=== PATIENT | male | born 1980 | race Caucasian/White ===

== ENCOUNTER 2020-05-20 14:10 | Emergency (ER) | payer OTHER ==
[~2020-05-20] VITALS: Ht 177.8 cm; Wt 100.7 kg
--- NOTE | 2020-05-20 14:49 | REP ---
INDICATION: pain after fall COMPARISON: None. TECHNIQUE: AP, lateral, bilateral oblique and sunrise views. FINDINGS: The osseous structures and joint spaces are intact and normal. There is no evidence for acute fracture or dislocation. No joint effusion is appreciated. Surrounding soft tissues are unremarkable. No subcutaneous emphysema or radiodense foreign body. IMPRESSION: Normal examination. No acute fracture or dislocation. <Electronically signed by Michel Stephens > 05/20/20 [id number]
[2020-05-20 16:29] VITALS: BP 139/99
== END 2020-05-20 16:32 | disposition home or self-care (01) ==
LOC: M ED 14:10
DX: S89.92XA Unspecified injury of left lower leg, initial encounter (principal); W17.89XA Other fall from one level to another, initial encounter; Y92.9 Unspecified place or not applicable; Y99.0 Civilian activity done for income or pay; G89.29 Other chronic pain; M54.9 Dorsalgia, unspecified; F17.200 Nicotine dependence, unspecified, uncomplicated